=== PATIENT | female | born 1980 | race Caucasian/White ===

== ENCOUNTER 2024-11-01 10:17 | Outpatient (AMB) | payer MEDICAID, SELFPAY ==
--- NOTE | 2024-11-01 10:30 | MHC.OFFVIS ---
Vital Signs 11/01/24 10:32 Height 5 ft 3.5 in Weight 160 lb BMI 27.9 BP 130/81 Blood Pressure Location Lt brachial Position Sitting Respiration 15 Pulse 84 Pulse Source Pulse Oximeter Pulse Oximetry (%) 97 Oxygen Delivery Method Room Air Intake Visit Reasons: Chronic pain/fibromyalgia Allergies codeine Allergy (Severe, Verified 11/01/24 10:35) Anaphylaxis corn Allergy (Severe, Verified 11/01/24 10:35) Anaphylaxis levofloxacin [From Levaquin] Allergy (Severe, Verified 11/01/24 10:35) Hallucinations Medication List - Last Reconciled 11/01/24 by Arin Akins LPN albuterol sulfate 90 mcg/actuation 2 puffs inhalation Q6H PRN buspirone 15 mg PO TID calcium citrate-vitamin D3 1,000 mg-10 mcg /30 mL 30 mL PO BID conjugated estrogens (Premarin) vaginal cyanocobalamin (vitamin B-12) 1,000 mcg IM epinephrine IM ergocalciferol (vitamin D2) (Vitamin D2) 1,250 mcg PO QWEEK esomeprazole magnesium 40 mg PO DAILY fluticasone propionate 50 mcg/actuation 2 intranasal DAILY hydromorphone 2 mg PO .HS ipratropium bromide 2 sprays intranasal magnesium oxide 800 mg PO DAILY mometasone (Asmanex Twisthaler) 2 inhalations inhalation DAILY olodaterol 2.5 mcg/actuation ([place]riverdi Respimat) 2 puffs inhalation DAILY ondansetron 8 mg PO Q8H PRN potassium chloride ER 40 mEq PO BID thyroid (pork) ([place] Thyroid) 60 mg PO DAILY trazodone 100 mg PO BEDTIME PRN HPI HPI Chronic pain/fibromyalgia: Details: 44-year-old female who presents today to the office for chronic low back pain. She has a history of fibromyalgia. She reports chronic pain in her back. The non radiating pain is localized to her head, clavicle, around the scapula, and the LB. She denies any injury or accidents. The pain is worse at night. She has a difficulty sleeping at night. She tried the Lyrica but it caused diarrhea. She sees Gina Piña for manipulation and trigger point injections at [facility], which has been mildly helpful but she has difficulty getting an appointment. She had an MRI scan about 5 years ago at [facility]. COUNT INCLUDES THE [facility] Medical History (Updated 11/08/24 @ 12:18 by Victorino Gusman MD) Other chronic pain Closed displaced fracture of left clavicle Dysphagia TBI (traumatic brain injury) Closed skull fracture Muscular deconditioning Thrombophlebitis arm Infectious mononucleosis Electrolyte disturbance Arthralgia Alcohol use Hypokalemia Eating disorder QT prolongation Vitamin D deficiency Hyponatremia Adult idiopathic generalized osteoporosis Acquired hypertriglyceridemia Anxiety and depression Bilious vomiting with nausea Cyst of right ovary Abdominal discomfort Pure hypercholesterolemia Macrocytic anemia Moderate persistent asthma without complication Palpitations Allergic rhinitis Spondylolisthesis at L5-S1 level Recurrent pneumonia Transaminitis Osteoporosis Tertiary hyperparathyroidism History of duodenal ulcer Family history of cardiomyopathy Secondary physiologic amenorrhea Alcoholic hepatitis Acquired hypothyroidism Varicose veins of other specified sites Tobacco dependence Review of Systems Const All systems reviewed & are unremarkable except as noted in HPI and below Physical Exam Vital Signs: Last Vital Signs Pulse 84 11/01/24 10:32 Resp 15 11/01/24 10:32 BP 130/81 11/01/24 10:32 Pulse Ox 97 11/01/24 10:32 Oxygen Delivery Method Room Air 11/01/24 10:32 BMI result Body Mass Index 27.9 General: Appears afebrile. Alert and oriented. Mood and affect appropriate. Follows and participates in conversation appropriately. Respiratory effort is unlabored. Able to transition from sit to stand unassisted. Ambulates with bilaterally normal heel strike and toe off. Results Reviewed Results Reviewed: No imaging is available for review. Assessment & Plan Assessment & Plan (1) Chronic low back pain: Code(s): M54.50 - Low back pain, unspecified; G89.29 - Other chronic pain Category: Medical Plan I advised patient to locate her MRI report and images at [facility] and bring them to us for review. Once I have reviewed the MRI images and report, we can plan for potential interventional therapy. If the MRI scan result of lumbar spine is not available, we will order a new MRI scan for her. Discussed cortisone injections vs. temporary peripheral nerve stimulator vs. PRP injections as possible treatment option for her neck and back pain. Given her history of osteoporosis, she may not be good candidate for cortisone injections. Scribed for Dr. Gusman by [facility] section director, on 11/01/2024. I, Dr. Gusman, have personally reviewed and agree with the information entered by the scribe. Coding Level of Care Code New Pt Level 3 (48964) Diagnoses Chronic low back pain M54.50; G89.29
[2024-11-01 10:32] VITALS: BP 130/81; PULSE 84; RESP 15; O2SAT 97; BMI 27.9
== END 2024-11-01 11:22 | disposition home or self-care (01) ==
PROVIDERS: PCP Family Medicine; Visit Provider Internal Medicine
DX: M54.50 Low back pain, unspecified (principal); G89.29 Other chronic pain
CPT/HCPCS: 99203

== ENCOUNTER → 2024-11-01 10:17 | Outpatient (BNVA) | payer MEDICAID, SELFPAY | PROVIDERS: PCP Family Medicine; Visit Provider Internal Medicine | DX: M79.7 Fibromyalgia (principal); M54.50 Low back pain, unspecified; G89.29 Other chronic pain | CPT/HCPCS: 99202 ==